=== PATIENT | male | born 1945 | race Caucasian/White ===

== ENCOUNTER 2021-07-24 11:13 | Emergency (ER) | payer OTHER ==
[2021-07-24] MEDS ORDERED: niCARdipine HCl 25 MG in Sodium Chloride 0.9% 240 ML IV SCH (11:30)
--- NOTE | 2021-07-24 11:31 | CT ---
PROCEDURE INFORMATION: Exam: CT Head Without Contrast Exam date and time: 07/24/2021 11:01 AM Age: 75 years old Clinical indication: Altered mental status/memory loss; Other: Zenia blood pressure; Additional info: Altered menal status TECHNIQUE: Imaging protocol: Computed tomography of the head without contrast. Radiation optimization: All CT scans at this facility use at least one of these dose optimization techniques: automated exposure control; mA and/or kV adjustment per patient size (includes targeted exams where dose is matched to clinical indication); or iterative reconstruction. Other technique: STROKE PROTOCOL was implemented. COMPARISON: No relevant prior studies available. FINDINGS: Limitations: None. Brain: No mass, intracranial hemorrhage or brain edema. No transcortical defect. Normal cerebellum and brainstem. Diffuse brain volume loss in excess of that considered age-appropriate. Symmetric diffuse supratentorial white matter hypoattenuation. Cerebral ventricles: Normal. Paranasal sinuses: Normal. Mastoid air cells: Normal. Vasculature: Carotid atherosclerosis. Bones/joints: Normal. Soft tissues: Unremarkable. IMPRESSION: 1. No acute intracranial abnormality. Nonspecific diffuse brain volume loss. No focal encephalomalacia. 2. Atherosclerosis and typical stigmata of chronic ischemic white matter microangiopathy. ASSESSMENT: ASPECTS ([place] Stroke Program Early CT Score) is 10.
--- NOTE | 2021-07-24 12:05 | EDM.PDOC ---
ED HPI GENERAL MEDICAL PROBLEM - General Chief Complaint: Neuro Symptoms/Deficits Stated Complaint: IN BY [facility] Time Seen by Provider: 07/24/21 12:05 Source of Information: Reports: Patient, EMS, RN History Limitations: Reports: No Limitations - History of Present Illness INITIAL COMMENTS - FREE TEXT/NARRATIVE: ED via [facility] with report of altered mental status, difficulty to arouse per SO patient initially lethargic and confused within few minutes alert oriented and talking. Patient denies c/o other than sore tip of tongue. No seizure hx . Admits daily ETOH at least one pint per day. Does not take prescribed meds as ordered. Last ETOH last [place]verley. SO not patient drinking more energy drinks than usual. Family brought large bag with [facility] over counter vitamin and supplements, minimum of 50 bottles , Only prescription medication in bag enalapril fill in december and diclofenac fill in february, . BP HR elevated on scene. Denied c/o chest pain. - Related Data Allergies Allergy/AdvReac Type Severity Reaction Status Date / Time No Known Allergies Allergy Verified 11/13/16 07:51 Home Meds: Home Meds Ascorbic Acid 500 mg PO DAILY 11/13/16 [History] Aspirin 325 mg PO DAILY 11/13/16 [History] Cholecalciferol (Vitamin D3) [Vitamin D3] 1,000 units PO DAILY 11/13/16 [History] Diclofenac Sodium [Voltaren] 2 tab PO DAILY 11/13/16 [History] Enalapril Maleate 40 mg PO DAILY 11/13/16 [History] Garlic 500 mg PO DAILY 11/13/16 [History] Celeste Root [Celeste] 250 mg PO DAILY 11/13/16 [History] Hydrochlorothiazide 0.5 tab PO DAILY 11/13/16 [History] Latanoprost [Xalatan 0.005% Ophth Soln] 1 drop EYEBOTH DAILY 11/13/16 [History] Milk Thistle 150 mg PO DAILY 11/13/16 [History] [place]-3S/DHA/Epa/Fish Oil [[place]-3 Fish Oil 1,000 mg Sfgl] 1,000 mg PO DAILY 11/13/16 [History] Turmeric Root Extract [Turmeric] 720 mg PO DAILY 11/13/16 [History] Ubidecarenone [Co Q-10] 100 mg PO DAILY 11/13/16 [History] Vitamin B Complex 1 tab PO DAILY 11/13/16 [History] atenoloL [Atenolol] 50 mg PO DAILY 11/13/16 [History] Past Medical History Cardiovascular History: Reports: High Cholesterol, Hypertension Gastrointestinal History: Reports: Colon Polyp, GI Bleed, Other (See Below) Other Gastrointestinal History: states GI bleed due to taking to much NSAIDS Endocrine/Metabolic History: Reports: Obesity/BMI 30+ Hematologic History: Reports: Blood Transfusion(s) - Past Surgical History Musculoskeletal Surgical History: Reports: Arthroscopic Knee, Shoulder Surgery ED ROS GENERAL - Review of Systems Review Of Systems: Comprehensive ROS is negative, except as noted in HPI. ED EXAM, NEURO - Physical Exam Exam: See Below Exam Limited By: No Limitations General Appearance: Alert, No Apparent Distress, Obese Eye Exam: Bilateral Eye: EOMI, Globe Laceration, PERRL Ears: Normal External Exam Nose: Normal Inspection Throat/Mouth: Other (bruising end of tongue) Head Exam: Atraumatic, Normocephalic Neck: Normal Inspection Respiratory/Chest: No Respiratory Distress, Lungs Clear, Normal Breath Sounds Cardiovascular: Normal Peripheral Pulses, Regular Rate, Rhythm, Tachycardia GI/Abdominal: Normal Bowel Sounds, Soft, Non-Tender, No Organomegaly Neurological: Alert, Normal Dorsiflexion, CN II-XII Intact, Normal Plantar Flexion, Normal Reflexes, No Motor/Sensory Deficits, Oriented x 3. No: Tremor Extremities: Normal Range of Motion, Other (right plantar later edge, mulitiple bumps, firm tophi type) Skin Exam: Warm, Dry, Intact, Normal Color #1 Interpretation EKG Date: 07/24/21 Time: 12:09 Rhythm: Other (sinus tachycardia) Rate (Beats/Min): 138 Anita: Normal QRS: Normal ST-T: Normal Comparison: NA - No Prior EKG Course - Vital Signs Last Recorded V/S: Last Vital Signs Temp 98.2 F 07/24/21 11:13 Pulse 101 H 07/24/21 15:05 Resp 21 H 07/24/21 11:13 BP 155/103 H 07/24/21 15:05 Pulse Ox 95 07/24/21 11:13 - Orders/Labs/Meds Labs: Laboratory Tests 07/24/21 07/24/21 07/24/21 Range/Units 11:40 11:40 11:40 WBC 12.5 H (5.0-10.0) 10^3/uL RBC 4.97 (4.6-6.2) 10^6/uL Hgb 16.3 (14.0-18.0) g/dL Hct 47.1 (40.0-54.0) % MCV 94.8 (80-100) fL MCH 32.8 (27.0-34.0) pg MCHC 34.6 (33.0-35.0) g/dL Plt Count 215 (150-450) 10^3/uL Neut % (Auto) 75.8 H (42.2-75.2) % Lymph % (Auto) 15.2 L (20.5-50.1) % [place] % (Auto) 7.9 (2-8) % Eos % (Auto) 0.7 L (1.0-3.0) % Baso % (Auto) 0.4 (0.0-1.0) % PT 11.0 (9.0-12.0) SEC INR 1.1 (0.9-1.2) Sodium 135 L (136-145) mmol/L Potassium 3.7 (3.5-5.1) mmol/L Chloride 97 L (98-107) mmol/L Carbon Dioxide 29 (21-32) mmol/L Anion Gap 12.7 (7-13) mEq/L BUN 11 (7-18) mg/dL Creatinine 1.13 (0.70-1.30) mg/dL Est Cr Clr Drug Dosing 56.33 mL/min Estimated GFR (MDRD) > 60 BUN/Creatinine Ratio 9.7 (No establ ref range) Glucose 122 H (70-99) mg/dL Lactic Acid (0.4-2.0) mmol/L Calcium 8.7 (8.5-10.1) mg/dL Magnesium 1.9 (1.8-2.4) mg/dL Total Bilirubin 0.8 (0.2-1.0) mg/dL AST 47 H (15-37) U/L ALT 41 (16-63) U/L Alkaline Phosphatase 110 (46-116) U/L Ammonia (11-32) umol/L Total Protein 6.7 (6.4-8.2) g/dL Albumin 3.3 L (3.4-5.0) g/dL Globulin 3.4 Albumin/Globulin Ratio 0.97 TSH, Ultra Sensitive (0.36-3.74) uIU/mL Urine Color (YELLOW) Urine Appearance (CLEAR) Urine pH (5.0-9.0) Ur Specific [place] (1.005-1.030) Urine Protein (NEGATIVE) Urine Glucose (UA) (NEGATIVE) Urine Ketones (NEGATIVE) Urine Occult Blood (NEGATIVE) Urine Nitrite (NEGATIVE) Urine Bilirubin (NEGATIVE) Urine Urobilinogen (0.2-1.0) mg/dL Ur Leukocyte Esterase (NEGATIVE) Urine RBC (0-5) /HPF Urine WBC (0-5/HPF) /HPF Ur Epithelial Cells (NOT SEEN) /HPF Urine Bacteria (0-FEW/HPF) /HPF Urine Opiates Screen (NEGATIVE) Ur Oxycodone Screen (NEGATIVE) Urine Methadone Screen (NEGATIVE) Ur Barbiturates Screen (NEGATIVE) U Tricyclic Antidepress (NEGATIVE) Ur Phencyclidine Scrn (NEGATIVE) Ur Amphetamine Screen (NEGATIVE) U Methamphetamines Scrn (NEGATIVE) Urine MDMA Screen (NEGATIVE) U Benzodiazepines Scrn (NEGATIVE) Urine Cocaine Screen (NEGATIVE) U Marijuana (THC) Screen (NEGATIVE) Ethyl Alcohol < 3 (0) mg/dL 07/24/21 07/24/21 07/24/21 Range/Units 11:40 11:40 11:40 WBC (5.0-10.0) 10^3/uL RBC (4.6-6.2) 10^6/uL Hgb (14.0-18.0) g/dL Hct (40.0-54.0) % MCV (80-100) fL MCH (27.0-34.0) pg MCHC (33.0-35.0) g/dL Plt Count (150-450) 10^3/uL Neut % (Auto) (42.2-75.2) % Lymph % (Auto) (20.5-50.1) % [place] % (Auto) (2-8) % Eos % (Auto) (1.0-3.0) % Baso % (Auto) (0.0-1.0) % PT (9.0-12.0) SEC INR (0.9-1.2) Sodium (136-145) mmol/L Potassium (3.5-5.1) mmol/L Chloride (98-107) mmol/L Carbon Dioxide (21-32) mmol/L Anion Gap (7-13) mEq/L BUN (7-18) mg/dL Creatinine (0.70-1.30) mg/dL Est Cr Clr Drug Dosing mL/min Estimated GFR (MDRD) BUN/Creatinine Ratio (No establ ref range) Glucose (70-99) mg/dL Lactic Acid 3.6 H* (0.4-2.0) mmol/L Calcium (8.5-10.1) mg/dL Magnesium (1.8-2.4) mg/dL Total Bilirubin (0.2-1.0) mg/dL AST (15-37) U/L ALT (16-63) U/L Alkaline Phosphatase (46-116) U/L Ammonia 16 (11-32) umol/L Total Protein (6.4-8.2) g/dL Albumin (3.4-5.0) g/dL Globulin Albumin/Globulin Ratio TSH, Ultra Sensitive 2.69 (0.36-3.74) uIU/mL Urine Color (YELLOW) Urine Appearance (CLEAR) Urine pH (5.0-9.0) Ur Specific [place] (1.005-1.030) Urine Protein (NEGATIVE) Urine Glucose (UA) (NEGATIVE) Urine Ketones (NEGATIVE) Urine Occult Blood (NEGATIVE) Urine Nitrite (NEGATIVE) Urine Bilirubin (NEGATIVE) Urine Urobilinogen (0.2-1.0) mg/dL Ur Leukocyte Esterase (NEGATIVE) Urine RBC (0-5) /HPF Urine WBC (0-5/HPF) /HPF Ur Epithelial Cells (NOT SEEN) /HPF Urine Bacteria (0-FEW/HPF) /HPF Urine Opiates Screen (NEGATIVE) Ur Oxycodone Screen (NEGATIVE) Urine Methadone Screen (NEGATIVE) Ur Barbiturates Screen (NEGATIVE) U Tricyclic Antidepress (NEGATIVE) Ur Phencyclidine Scrn (NEGATIVE) Ur Amphetamine Screen (NEGATIVE) U Methamphetamines Scrn (NEGATIVE) Urine MDMA Screen (NEGATIVE) U Benzodiazepines Scrn (NEGATIVE) Urine Cocaine Screen (NEGATIVE) U Marijuana (THC) Screen (NEGATIVE) Ethyl Alcohol (0) mg/dL 07/24/21 07/24/21 Range/Units 12:25 12:25 WBC (5.0-10.0) 10^3/uL RBC (4.6-6.2) 10^6/uL Hgb (14.0-18.0) g/dL Hct (40.0-54.0) % MCV (80-100) fL MCH (27.0-34.0) pg MCHC (33.0-35.0) g/dL Plt Count (150-450) 10^3/uL Neut % (Auto) (42.2-75.2) % Lymph % (Auto) (20.5-50.1) % [place] % (Auto) (2-8) % Eos % (Auto) (1.0-3.0) % Baso % (Auto) (0.0-1.0) % PT (9.0-12.0) SEC INR (0.9-1.2) Sodium (136-145) mmol/L Potassium (3.5-5.1) mmol/L Chloride (98-107) mmol/L Carbon Dioxide (21-32) mmol/L Anion Gap (7-13) mEq/L BUN (7-18) mg/dL Creatinine (0.70-1.30) mg/dL Est Cr Clr Drug Dosing mL/min Estimated GFR (MDRD) BUN/Creatinine Ratio (No establ ref range) Glucose (70-99) mg/dL Lactic Acid (0.4-2.0) mmol/L Calcium (8.5-10.1) mg/dL Magnesium (1.8-2.4) mg/dL Total Bilirubin (0.2-1.0) mg/dL AST (15-37) U/L ALT (16-63) U/L Alkaline Phosphatase (46-116) U/L Ammonia (11-32) umol/L Total Protein (6.4-8.2) g/dL Albumin (3.4-5.0) g/dL Globulin Albumin/Globulin Ratio TSH, Ultra Sensitive (0.36-3.74) uIU/mL Urine Color Dark yellow (YELLOW) Urine Appearance Slightly cloudy (CLEAR) Urine pH 7.0 (5.0-9.0) Ur Specific [place] 1.025 (1.005-1.030) Urine Protein 100 H (NEGATIVE) Urine Glucose (UA) Negative (NEGATIVE) Urine Ketones Trace H (NEGATIVE) Urine Occult Blood Negative (NEGATIVE) Urine Nitrite Positive H (NEGATIVE) Urine Bilirubin Negative (NEGATIVE) Urine Urobilinogen 0.2 (0.2-1.0) mg/dL Ur Leukocyte Esterase Negative (NEGATIVE) Urine RBC Not seen (0-5) /HPF Urine WBC 0-5 (0-5/HPF) /HPF Ur Epithelial Cells Few (NOT SEEN) /HPF Urine Bacteria Many H (0-FEW/HPF) /HPF Urine Opiates Screen Negative (NEGATIVE) Ur Oxycodone Screen Negative (NEGATIVE) Urine Methadone Screen Negative (NEGATIVE) Ur Barbiturates Screen Negative (NEGATIVE) U Tricyclic Antidepress Negative (NEGATIVE) Ur Phencyclidine Scrn Negative (NEGATIVE) Ur Amphetamine Screen Negative (NEGATIVE) U Methamphetamines Scrn Negative (NEGATIVE) Urine MDMA Screen Negative (NEGATIVE) U Benzodiazepines Scrn Negative (NEGATIVE) Urine Cocaine Screen Negative (NEGATIVE) U Marijuana (THC) Screen Negative (NEGATIVE) Ethyl Alcohol (0) mg/dL Meds: Medications Discontinued Medications Generic Name Dose Route Start Last Admin Trade Name Olena PRN Reason Stop Dose Admin Atenolol 50 mg 07/24/21 14:34 07/24/21 15:05 Atenolol 50 Mg Tab PO 07/24/21 14:35 50 mg ONETIME ONE Administration Nicardipine HCl 25 mg/ Sodium 250 mls @ 50 mls/hr 07/24/21 11:30 07/24/21 12:33 Chloride IV 0 mg/hr TITRATE JONATHAN 0 mls/hr Titration Protocol 5 MG/HR Multivitamins/Minerals 10 ml/ 1,011.2 mls @ 999 mls/hr 07/24/21 12:36 07/24/21 12:55 Folic Acid 1 mg/ Thiamine HCl IV 07/24/21 13:36 999 mls/hr 100 mg/ Lactated Ringer's ONETIME ONE Administration Ceftriaxone Sodium 1 gm/ 50 mls @ 100 mls/hr 07/24/21 13:30 07/24/21 14:34 Sodium Chloride IV 07/24/21 13:59 100 mls/hr ONETIME ONE Administration Levetiracetam 1,000 mg/ Premix 200 mls @ 800 mls/hr 07/24/21 14:36 07/24/21 15:30 IV 07/24/21 14:37 Infused ONETIME ONE Infusion Lorazepam 1 mg 07/24/21 14:34 07/24/21 15:05 Lorazepam 2 Mg/Ml Sdv IVPUSH 07/24/21 14:35 1 mg ONETIME ONE Administration - Re-Assessments/Exams Free Text/Narrative Re-Assessment/Exam: 07/24/21 13:43 Resting, BP improved. No c/o. No seizure activity intermittent light dozing arouses to voice. Departure - Departure Time of Disposition: 16:40 Disposition: Home, Self-Care 01 Condition: Fair Clinical Impression: Seizure, Alcohol abuse, Abuse of nutritional supplements, Noncompliance w/medication treatment due to intermit use of medication Hypertension Qualifiers: Hypertension type: unspecified Qualified Code(s): I10 - Essential (primary) hypertension - Discharge Information *PRESCRIPTION DRUG MONITORING PROGRAM REVIEWED*: No *COPY OF PRESCRIPTION DRUG MONITORING REPORT IN PATIENT NICK: No Instructions: Hypertension, Adult, [id number], Alcohol Abuse and Nutrition, Managing Your Hypertension Forms: ED Department Discharge Additional Instructions: clinic follow up this week take prescribed medication enalapril and atenolol as prescribed decrease alcohol use limit energy drinks and caffeine intake throw away unused supplements that you are no longer taking No driving Sepsis Event Note (ED) - Evaluation Sepsis Screening Result: No Definite Risk
[2021-07-24 12:10] LABS: ANION GAP 12.7 mEq/L (7-13); CHLORIDE,CL 97 mmol/L (98-107); SODIUM,NA 135 mmol/L (136-145)
[2021-07-24] MEDS ORDERED: MVI, Adult with Vitamin K 10 ML, Folic Acid 1 MG, Thiamine 100 MG in Lactated Ringers 1... IV ONE ×4 (12:36)
[2021-07-24 12:39] LABS: AMPHETAMINES,URINE NEGATIVE (NEGATIVE); BARBITURATES,URINE NEGATIVE (NEGATIVE); BENZODIAZEPINE,URINE NEGATIVE (NEGATIVE); MDMA (ECSTASY), URINE NEGATIVE (NEGATIVE); METHADONE,URINE NEGATIVE (NEGATIVE); METHAMPHETAMINES,URINE NEGATIVE (NEGATIVE); OPIATES,URINE NEGATIVE (NEGATIVE); OXYCODONE,URINE NEGATIVE (NEGATIVE); PHENCYCLIDINE,URINE NEGATIVE (NEGATIVE); TCA,URINE NEGATIVE (NEGATIVE)
[2021-07-24] MEDS ORDERED: cefTRIAXone 1 GM in Sodium Chloride 0.9% 50 ML IV ONE (13:30)
[2021-07-24] MEDS ORDERED: LORazepam 2 MG/ML SDV IVPUSH ONE (14:34)
[2021-07-24] MEDS ORDERED: Atenolol 50 MG Tab PO ONE (14:34)
[2021-07-24] MEDS ORDERED: levETIRAcetam in NaCl (iso-os) 1,000 MG in Premix Bag 1 BAG IV ONE ×2 (14:36)
[2021-07-24 15:11] VITALS: BP 155/103; PULSE 101
== END 2021-07-24 17:04 | disposition home or self-care (01) ==
LOC: DL.ED 11:13
DX: R56.9 Unspecified convulsions (principal); F10.10 Alcohol abuse, uncomplicated; I10 Essential (primary) hypertension; F01-F99 Mental, behavioral and neurodevelopmental disorders; E78.00 Pure hypercholesterolemia, unspecified; E66.9 Obesity, unspecified; Z68.34 Body mass index [BMI] 34.0-34.9, adult; Z79.82 Long term (current) use of aspirin; Z91.19 Patient's noncompliance with other medical treatment and regimen; Y90.0 Blood alcohol level of less than 20 mg/100 ml
CPT/HCPCS: 36415; 70450; 80053; 80305; 80307; 81001; 82140; 83605; 83735; 84443; 85025; 85610; 87086; 87088; 87186; 93005; 96365; 96367; 96375; 99285; A9270; J0696; J1953; J2060; J3411; J7050; J7120; J3490